=== PATIENT | female | born 1945 | race African-American/Black ===

== ENCOUNTER 2017-07-28 15:48 | Inpatient (IN) | payer MEDICARE, MEDICAID ==
[~2017-07-28] VITALS: Ht 162.6 cm; Wt 71.7 kg
[~2017-07-28 15:48] MED LIST: CLON0.2T PO; FOLI-43 PO; LEVE10006 PO; LISI30TA36 PO; TOPI50TA24 PO; VERA240C2 PO
[2017-07-28 16:00] VITALS: BP 124/72
[2017-07-28] MEDS ORDERED: HYDROCODONE/ACETAMINOPHEN 10/325MG TABLET PO PRN (17:45)
[2017-07-28] MEDS ORDERED: ZOLPIDEM TARTRATE 5MG TABLET PO PRN (17:45)
[2017-07-28] MEDS ORDERED: ACETAMINOPHEN 650MG/20.3ML UDC PO PRN (17:45)
[2017-07-28 18:16] VITALS: BP 124/72
[2017-07-28] MEDS ORDERED: SODIUM CHLORIDE 0.45% 1,000 ML IV SCH (18:30)
[2017-07-28] MEDS: LEVETIRACETAM 500MG TABLET PO SCH (18:41)
[2017-07-28 20:00] VITALS: BP 119/69
[2017-07-28] MEDS: CLONIDINE 0.1MG TABLET PO SCH (20:31)
[2017-07-28] MEDS ORDERED: MEDICATION NOT ON FORMULARY EA (Verapamil Hcl (Verapamil Er) 240 MG) PO SCH (21:00)
[2017-07-28] MEDS: VERAPAMIL HCL 240MG SR TABLET PO SCH (21:41)
[2017-07-29] VITALS (22 sets, daily range): BP systolic 95–144; BP diastolic 54–70
[2017-07-29] MEDS: LISINOPRIL 20MG TABLET PO SCH (08:19)
[2017-07-29] MEDS: CLONIDINE 0.1MG TABLET PO SCH ×2 (08:20→20:55)
[2017-07-29] MEDS: TOPIRAMATE 25MG TABLET PO SCH (08:21)
[2017-07-29] MEDS: FOLIC ACID 1MG TABLET PO SCH (08:21)
[2017-07-29] MEDS: LEVETIRACETAM 500MG TABLET PO SCH ×2 (08:21→16:31)
[2017-07-29] MEDS ORDERED: MEDICATION NOT ON FORMULARY EA (Levetiracetam 1,000 MG) PO SCH (09:00)
[2017-07-29] MEDS ORDERED: LISINOPRIL 30 MG PO SCH (09:00)
[2017-07-29] MEDS ORDERED: TOPIRAMATE 50 MG PO SCH (09:00)
[2017-07-29] MEDS ORDERED: CLONIDINE 0.2MG TABLET PO SCH (09:00)
[2017-07-29 09:14] LABS: MEAN CORPUSCULAR HEMOGLOBIN 12.1 pg (28.0-32.0); MEAN CORPUSCULAR VOLUME 48.8 fL (81.0-99.0); MEAN PLATELET VOLUME 8.2 fl (7.4-10.4); PLATELET 225 x1000/uL (130-400); RED BLOOD CELL COUNT 2.83 mill/uL (4.2-5.4); RED CELL DISTRIBUTION WIDTH 26.5 % (11.6-14.6)
[2017-07-29 09:22] LABS: HEMOGLOBIN. 3.4 g/dL (12.0-16.0)
[2017-07-29 09:23] LABS: HEMATOCRIT. 13.8 % (36.0-48.0)
[2017-07-29] MEDS ORDERED: ENOXAPARIN 30MG/0.3ML SYR SUBCUT SCH (09:30)
[2017-07-29 10:02] LABS: PLATELET ESTIMATE NORMAL
[2017-07-29 15:48] LABS: HEMATOCRIT 19.1 % (36.0-48.0); HEMOGLOBIN 5.2 g/dL (12.0-16.0)
[2017-07-29] MEDS ORDERED: FUROSEMIDE 20MG TABLET PO NR (17:15)
[2017-07-29] MEDS ORDERED: LACTULOSE 20G/30ML UDC PO PRN (17:15)
[2017-07-29] MEDS ORDERED: DIPHENHYDRAMINE 50MG/ML VIAL IV PRN (17:15)
[2017-07-29] MEDS ORDERED: SORBITOL 70% SOLN 30ML PO NR ×2 (18:30→22:15)
[2017-07-29 19:33] LABS: HEMATOCRIT 22.3 % (36.0-48.0)
[2017-07-29 19:37] LABS: HEMOGLOBIN 6.4 g/dL (12.0-16.0)
[2017-07-29 19:54] LABS: HAPTOGLOBIN 68 mg/dL (30-200); TOTAL IRON BINDING CAPACITY 377 ug/dL (250-450)
[2017-07-29 20:19] LABS: VITAMIN B12 SERUM 344 pg/mL (211-911)
[2017-07-29 20:28] LABS: FOLIC ACID (FOLATE) SERUM > 20.00 ng/mL (>5.38)
[2017-07-29 20:51] LABS: CARCINO EMBRYONIC ANTIGEN 2.2 ng/ml
[2017-07-29] MEDS: VERAPAMIL HCL 240MG SR TABLET PO SCH (20:55)
[2017-07-29 21:01] LABS: FERRITIN < 5 ng/mL (10-291)
[2017-07-30 00:05] VITALS: BP 110/65
[2017-07-30 00:40] LABS: HEMATOCRIT 27.4 % (36.0-48.0); HEMOGLOBIN 7.9 g/dL (12.0-16.0)
[2017-07-30 04:00] VITALS: BP 122/71
[2017-07-30] MEDS ORDERED: NA PHOS,M-B/NA PHOS,DI-BA ENEMA 118ML PR NR (06:00)
[2017-07-30 07:04] LABS: PARTIAL THROMBOPLASTIN TIME 22.8 sec (23.4-31.0); PROTHROMBIN TIME 10.3 sec (9.4-11.6)
[2017-07-30 07:05] LABS: EOSINOPHILS % 3.9 % (0.0-5.0); HEMATOCRIT. 26.7 % (36.0-48.0); HEMOGLOBIN. 7.8 g/dL (12.0-16.0); LYMPHOCYTES % 11.2 % (20.0-50.0); MEAN CORPUSCULAR HEMOGLOBIN 18.8 pg (28.0-32.0); MEAN CORPUSCULAR VOLUME 63.9 fL (81.0-99.0); MEAN PLATELET VOLUME 8.2 fl (7.4-10.4); MONOCYTES % 8.2 % (2.0-8.0); NEUTROPHILS % 74.7 % (40.0-76.0); PLATELET 220 x1000/uL (130-400); RED BLOOD CELL COUNT 4.17 mill/uL (4.2-5.4); RED CELL DISTRIBUTION WIDTH 40.5 % (11.6-14.6)
[2017-07-30 08:00] VITALS: BP 127/75
[2017-07-30] MEDS: TOPIRAMATE 25MG TABLET PO SCH (08:53)
[2017-07-30] MEDS: LISINOPRIL 20MG TABLET PO SCH (08:53)
[2017-07-30] MEDS: LEVETIRACETAM 500MG TABLET PO SCH ×2 (08:54→16:14)
[2017-07-30] MEDS: CLONIDINE 0.1MG TABLET PO SCH ×2 (08:54→21:28)
[2017-07-30] MEDS: FOLIC ACID 1MG TABLET PO SCH (08:54)
[2017-07-30] MEDS ORDERED: POTASSIUM CHLORIDE 20MEQ TABLET SR PO SCH (09:45)
[2017-07-30 12:00] VITALS: BP 117/64
[2017-07-30] MEDS ORDERED: SIMETHICONE 40 MG/0.6 ML 30ML ONE (12:02)
[2017-07-30] MEDS ORDERED: FENTANYL CITRATE/PF 50MCG/ML 2ML VIAL ONE (12:02)
[2017-07-30] MEDS ORDERED: MIDAZOLAM HCL 5 MG/5 ML VIAL ONE (12:02)
[2017-07-30] MEDS ORDERED: MIDAZOLAM HCL 5 MG/5 ML VIAL IV PRN (12:16)
[2017-07-30] MEDS ORDERED: FENTANYL CITRATE/PF 50MCG/ML 2ML VIAL IV PRN (12:17)
[2017-07-30] MEDS: FERROUS SULFATE 325MG TABLET PO SCH ×4 (13:10→21:27)
[2017-07-30 16:00] VITALS: BP 122/70
[2017-07-30 20:00] VITALS: BP 115/65
[2017-07-30] MEDS: VERAPAMIL HCL 240MG SR TABLET PO SCH (21:28)
[2017-07-31] VITALS: BP 93/56
[2017-07-31 04:00] VITALS: BP 105/71
[2017-07-31 06:33] LABS: BASOPHILS % 1.9 % (0.0-2.0); EOSINOPHILS % 4.5 % (0.0-5.0); HEMATOCRIT. 25.9 % (36.0-48.0); HEMOGLOBIN. 7.6 g/dL (12.0-16.0); LYMPHOCYTES % 15.3 % (20.0-50.0); MEAN CORPUSCULAR HEMOGLOBIN 18.8 pg (28.0-32.0); MEAN CORPUSCULAR VOLUME 63.5 fL (81.0-99.0); NEUTROPHILS % 69.3 % (40.0-76.0); RED BLOOD CELL COUNT 4.07 mill/uL (4.2-5.4)
[2017-07-31 08:00] VITALS: BP 105/70
[2017-07-31 08:21] LABS: ALPHA FETOPROTEIN TUMOR MARKER 3.8 ng/mL (0.0-8.3); CANCER ANTIGEN 125 6.6 U/mL (0.0-38.1)
[2017-07-31 08:54] LABS: PLATELET ESTIMATE NORMAL
[2017-07-31 08:55] LABS: MEAN PLATELET VOLUME 8.2 fl (7.4-10.4); PLATELET 177 x1000/uL (130-400)
[2017-07-31] MEDS: FERROUS SULFATE 325MG TABLET PO SCH ×4 (08:57→21:35)
[2017-07-31] MEDS: TOPIRAMATE 25MG TABLET PO SCH (08:58)
[2017-07-31] MEDS: DOCUSATE SODIUM 100MG CAPSULE PO SCH (08:59)
[2017-07-31] MEDS: LISINOPRIL 20MG TABLET PO SCH (08:59)
[2017-07-31] MEDS: FOLIC ACID 1MG TABLET PO SCH (08:59)
[2017-07-31] MEDS: LEVETIRACETAM 500MG TABLET PO SCH ×2 (08:59→17:38)
[2017-07-31] MEDS: CLONIDINE 0.1MG TABLET PO SCH ×2 (09:00→21:36)
[2017-07-31] MEDS ORDERED: SIMETHICONE 40 MG/0.6 ML 30ML ONE (09:11)
[2017-07-31] MEDS ORDERED: SODIUM CHLORIDE 0.9% 10ML VIAL ONE (09:11)
[2017-07-31 12:00] VITALS: BP 107/65
[2017-07-31 16:00] VITALS: BP 103/62
[2017-07-31 19:18] LABS: CLARITY URINE CLOUDY (CLEAR); COLOR URINE YELLOW (YELLOW); KETONES URINE NEGATIVE (NEGATIVE); LEUKOCYTE ESTERASE URINE NEGATIVE (NEGATIVE); NITRITE URINE POSITIVE (NEGATIVE); OCCULT BLOOD URINE NEGATIVE (NEGATIVE); PH URINE 7.5 (4.5-8.0); PROTEIN URINE TRACE (NEGATIVE); SPECIFIC GRAVITY URINE 1.013 (1.005-1.030); UROBILINOGEN URINE 0.2 E.U./dL (0.2-1.0)
[2017-07-31 20:00] VITALS: BP 129/69
[2017-07-31] MEDS: VERAPAMIL HCL 240MG SR TABLET PO SCH (21:35)
[2017-08-01] VITALS: BP 127/82
[2017-08-01 04:00] VITALS: BP 110/67
[2017-08-01 07:15] LABS: BASOPHILS % 2.7 % (0.0-2.0); EOSINOPHILS % 4.6 % (0.0-5.0); HEMATOCRIT. 26.3 % (36.0-48.0); HEMOGLOBIN. 7.7 g/dL (12.0-16.0); MEAN CORPUSCULAR HEMOGLOBIN 18.8 pg (28.0-32.0); MEAN CORPUSCULAR VOLUME 63.9 fL (81.0-99.0); MONOCYTES % 10.3 % (2.0-8.0); NEUTROPHILS % 65.4 % (40.0-76.0); RED BLOOD CELL COUNT 4.12 mill/uL (4.2-5.4); RED CELL DISTRIBUTION WIDTH 41.5 % (11.6-14.6)
[2017-08-01 08:00] VITALS: BP 100/73
[2017-08-01 08:08] LABS: CHLORIDE 110 mEq/L (98-107)
[2017-08-01 08:22] LABS: CARBON DIOXIDE 24 mEq/L (21-32)
[2017-08-01] MEDS: LISINOPRIL 20MG TABLET PO SCH (09:00)
[2017-08-01] MEDS: CLONIDINE 0.1MG TABLET PO SCH (09:00)
[2017-08-01 09:32] LABS: PLATELET 171 x1000/uL (130-400)
[2017-08-01] MEDS: TOPIRAMATE 25MG TABLET PO SCH (09:49)
[2017-08-01] MEDS: DOCUSATE SODIUM 100MG CAPSULE PO SCH (09:49)
[2017-08-01] MEDS: FOLIC ACID 1MG TABLET PO SCH (09:49)
[2017-08-01] MEDS: FERROUS SULFATE 325MG TABLET PO SCH ×2 (09:49)
[2017-08-01] MEDS: LEVETIRACETAM 500MG TABLET PO SCH (09:49)
[2017-08-01 10:41] VITALS: BP 100/73
== END 2017-08-01 11:00 | disposition home or self-care (01) | DRG 811 ==
LOC: 6EST 15:48 → 7WST 07-29 11:04
PROVIDERS: ADMIT Internal Medicine; ATTEND Internal Medicine
PROC: 30233N1 Transfusion of Nonautologous Red Blood Cells into Peripheral Vein, Percutaneous Approach (ICD-10-PCS; 2017-07-29)
PROC: 0DJD8ZZ Inspection of Lower Intestinal Tract, Via Natural or Artificial Opening Endoscopic (ICD-10-PCS; 2017-07-30)
PROC: 0DB68ZX Excision of Stomach, Via Natural or Artificial Opening Endoscopic, Diagnostic (ICD-10-PCS; 2017-07-30)
PROC: 0DB98ZX Excision of Duodenum, Via Natural or Artificial Opening Endoscopic, Diagnostic (ICD-10-PCS; principal; 2017-07-30 11:30)
DX: D50.9 Iron deficiency anemia, unspecified (principal); N17.0 Acute kidney failure with tubular necrosis; E46 Unspecified protein-calorie malnutrition; I13.0 Hypertensive heart and chronic kidney disease with heart failure and stage 1 through stage 4 chronic kidney disease, or unspecified chronic kidney disease; N39.0 Urinary tract infection, site not specified; E11.22 Type 2 diabetes mellitus with diabetic chronic kidney disease; I50.9 Heart failure, unspecified; E11.65 Type 2 diabetes mellitus with hyperglycemia; G90.8 Other disorders of autonomic nervous system; F17.210 Nicotine dependence, cigarettes, uncomplicated; E86.0 Dehydration; K31.7 Polyp of stomach and duodenum; K29.40 Chronic atrophic gastritis without bleeding; G89.4 Chronic pain syndrome; N18.9 Chronic kidney disease, unspecified; K57.90 Diverticulosis of intestine, part unspecified, without perforation or abscess without bleeding; K64.4 Residual hemorrhoidal skin tags; E87.6 Hypokalemia; E78.5 Hyperlipidemia, unspecified; Z79.899 Other long term (current) drug therapy; Z86.73 Personal history of transient ischemic attack (TIA), and cerebral infarction without residual deficits; Z68.27 Body mass index [BMI] 27.0-27.9, adult
CPT/HCPCS: 36415; 70450; 76770; 80048; 80053; 81001; 82105; 82378; 82607; 82728; 82746; 83010; 83540; 83550; 83615; 84443; 85014; 85018; 85025; 85044; 85384; 85610; 85730; 86300; 86301; 86304; 86850; 86900; 86920; 88305; 88312; 88313; A4216; C1893; J2250; J3010; J7050; P9016